=== PATIENT | male | born 1970 | race Caucasian/White ===

== ENCOUNTER 2018-08-08 10:26 | Emergency (ER) | payer OTHER ==
[~2018-08-08] VITALS: Ht 177.8 cm; Wt 100.0 kg
[2018-08-08 10:39] VITALS: TEMP 98.2
[2018-08-08] MEDS ORDERED: MOTRIN 800800 MG/TAB PO (10:56)
[2018-08-08] MEDS ORDERED: FLEXERIL 1010 MG/TAB PO (10:56)
[2018-08-08] MEDS ORDERED: NORCO 325 MG-51 TAB PO (10:58)
[2018-08-08] MEDS ORDERED: MEDROL 4MG DOSPA4 MG PO (10:58)
[2018-08-08 11:42] VITALS: BP 131/94; PULSE 51
== END 2018-08-08 11:43 | disposition home or self-care (01) ==
LOC: COL.ER 10:26
DX: M54.16 Radiculopathy, lumbar region (principal); M54.42 Lumbago with sciatica, left side; Z79.01 Long term (current) use of anticoagulants
CPT/HCPCS: J1170; J2550; J7512